=== PATIENT | male | born 1950 | race Caucasian/White ===

== ENCOUNTER 2018-10-28 10:06 | Emergency (ER) | payer OTHER ==
[2018-10-28] MEDS ORDERED: MORPHINE 2 MG/ML SYR ONE ×2 (11:10→14:01)
[2018-10-28] MEDS ORDERED: NA CHLORIDE 0.9% 500 ML ONE (11:10)
[2018-10-28] MEDS ORDERED: ONDANSETRON 4 MG/2 ML VIAL ONE (11:10)
[2018-10-28 11:22] LABS: Absolute Lymphocytes (CBC) 1.8 K/uL (0.7-4.9); Basophils % 0.6 % (0-1.3); Hematocrit 39.2 % (39.6-49.0); Lymphocytes % 24.6 % (15.3-44.8); MPV 7.9 fL (7.6-11.3); RBC Red Blood Cell Count 4.21 M/uL (4.33-5.43)
[2018-10-28] MEDS ORDERED: MORPHINE 4 MG/ML SYR ONE (11:35)
--- NOTE | 2018-10-28 11:36 | RAD REPORT ---
EXAM DESCRIPTION: CT - Stone Protocol - 10/28/2018 11:27 am CLINICAL HISTORY: Left flank pain COMPARISON: None. TECHNIQUE: Axial 5 mm thick images were obtained without oral or IV contrast. The upgcw-cm-exkt span s the entirety of the system including uppermost abdomen and lung bases. All CT scans are performed using dose optimization technique as appropriate and may include automated exposure control or mA/KV adjustment according to patient size. FINDINGS: The patient has a 9 x 6 mm calcification proximal left ureter. From a KUB projection the s tone is positioned between the L3 and L4 transverse processes. Proximal to the stone there is mild to moderate dilatation of the pelvis, calices and proximal ureter. Patient has a punctate 1 mm nonobstr ucting calyx calcification posterior mid left kidney. No right-sided hydronephrosis. No right-sided c alculi. No suspicious renal masses. Isodense masses and pyelonephritis are not excluded on a stone protocol CT scan. No urinary bladder suspicious finding. No significant adrenal finding. Prostate gland is pro minent but without evidence for invasion of attrition structures. There is mild mass effect on the bl adder base. No seminal vesicle abnormality seen. Imaged portions of the liver, spleen and pancreas show no suspicious findings on non-contrast imaging . No gallbladder or biliary tree abnormality identified. No suspicious bowel findings. Moderate stool volume is present. Mild sigmoid diverticulosis with no a ctive finding. No hernia, mass or bulky lymphadenopathy noted. No free air, free fluid or inflammatory stranding. No significant bony abnormality. IMPRESSION: A 9 x 6 mm obstructing calculus proximal left ureter causes mild to moderate hydronephro sis of the proximal ureter, pelvis and calices. When viewed from a KUB projection the stone is positioned between the left-side transverse processes of L3 and L4. Isodense masses and pyelonephritis are not excluded on stone protocol technique.
[2018-10-28 11:39] LABS: Albumin 3.8 g/dL (3.4-5.0); Bilirubin Direct 0.1 mg/dL (0-0.2); Bilirubin Total 0.6 mg/dL (0.2-1.0); Potassium 4.2 mmol/L (3.5-5.1); Protein, Total 6.7 g/dL (6.4-8.2)
--- NOTE | 2018-10-28 12:17 | ER ---
Nurse's Notes [facility] Name: Wayne Montgomery Age: 68 yrs Sex: Male : 1950 Arrival Date: 10/28/2018 Time: 10:09 Bed 16 Private MD: Diagnosis: Calculus of kidney and ureter Presentation: 10/28 10:16 Presenting complaint: Patient states: L flank pain that began at midnight, is ss continuous, dull and radiates around to abdomen. Pt has a history of kidney stones, but reports that this feels a little different. Pt also c/o nausea. Transition of care: patient was not received from another setting of care. Onset of symptoms was October 28, 2018. Risk Assessment: Do you want to hurt yourself or someone else? Patient reports no desire to harm self or others. Initial Sepsis Screen: Does the patient meet any 2 criteria? No. Patient's initial sepsis screen is negative. Does the patient have a suspected source of infection? No. Patient's initial sepsis screen is negative. Care prior to arrival: None. 10:16 Method Of Arrival: Ambulatory ss 10:16 Acuity: ESTRELLA 3 ss Historical: - Allergies: 10:18 No Known Allergies; ss - PMHx: 10:18 Hypertension; Hypothyroidism; Kidney stones; ss 10:19 High Cholesterol; ss - PSHx: 10:18 Appendectomy; ss - Immunization history:: Adult Immunizations up to date. - Social history:: Smoking status: Patient/guardian denies using tobacco. - Ebola Screening: : Patient denies exposure to infectious person Patient denies travel to an Ebola-affected area in the 21 days before illness onset. Screenin:45 Abuse screen: Denies threats or abuse. Nutritional screening: No deficits noted. em Tuberculosis screening: No symptoms or risk factors identified. Fall Risk None identified. Assessment: 10:45 General: Appears in no apparent distress. comfortable, Behavior is calm, cooperative, em Denies fever. Pain: Complains of pain in left low back Pain radiates to abdomen Pain currently is 5 out of 10 on a pain scale. Quality of pain is described as dull. Neuro: Level of Consciousness is awake, alert, obeys commands, Oriented to person, place, time, situation. Cardiovascular: Capillary refill < 3 seconds Patient's skin is warm and dry. Respiratory: Airway is patent Respiratory effort is even, unlabored, Respiratory pattern is regular, symmetrical. GI: Abdomen is flat, Reports nausea, vomiting. : Denies burning with urination. Derm: Skin is intact, is healthy with good turgor, Skin is pink, warm \T\ dry. Musculoskeletal: Capillary refill < 3 seconds, Range of motion: intact in all extremities. 11:00 Reassessment: Patient appears in no apparent distress at this time. I agree with above iw assessment by Kp Dean LVN. 11:10 Reassessment: reports pain medication did not help, provider notified, new medication em orders received. 12:10 Reassessment: Patient appears in no apparent distress at this time. Patient and/or em family updated on plan of care and expected duration. Pain level reassessed. Patient is alert, oriented x 3, equal unlabored respirations, skin warm/dry/pink. rates pain 3/10, went home to pack luggage so they can be discharged and go straight to [place], [place]. 13:30 Reassessment: Patient appears in no apparent distress at this time. Patient and/or em family updated on plan of care and expected duration. Pain level reassessed. Patient is alert, oriented x 3, equal unlabored respirations, skin warm/dry/pink. rates pain 5/10, provider notified, new medication orders received. Vital Signs: 10:18 BP 157 / 85; Pulse 62; Resp 16; Temp 98.0(TE); Pulse Ox 100% on R/A; Weight 70.31 kg; Height 5 ft. 10 in. (177.80 cm); Pain 7/10; 11:05 BP 144 / 80; Pulse 56; Pulse Ox 100% on R/A; Pain 5/10; em 12:23 BP 139 / 80; Pulse 62; Resp 18; Pulse Ox 99% on R/A; em 13:00 BP 123 / 65; Pulse 64; Resp 16; Pulse Ox 99% on R/A; em 10:18 Body Mass Index 22.24 (70.31 kg, 177.80 cm) ED Course: 10:09 Patient arrived in ED. as 10:18 Triage completed. ss 10:18 Arm band placed on right wrist. ss 10:27 Dereje Braga PA is PHCP. jmm 10:27 Ac Swartz MD is Attending Physician. jmm 10:30 Kp Dean LVN is Primary Nurse. em 10:45 Patient has correct armband on for positive identification. Bed in low position. Call em light in reach. Adult w/ patient. Pulse ox on. NIBP on. 10:45 Initial lab(s) drawn, by me, sent to lab. Inserted saline lock: 20 gauge in left em antecubital area, using aseptic technique. Blood collected. 11:29 CT Stone Protocol In Process Unspecified. EDMS 13:55 No provider procedures requiring assistance completed. IV discontinued, intact, em bleeding controlled, No redness/swelling at site. Pressure dressing applied. Administered Medications: 11:04 Drug: morphine 2 mg Route: IVP; Site: left antecubital; iw 11:15 Follow up: Response: No adverse reaction; Pain is unchanged, physician notified em 11:04 Drug: Zofran 4 mg Route: IVP; Site: left antecubital; iw 11:15 Follow up: Response: No adverse reaction; Nausea is decreased em 11:04 Drug: NS 0.9% 500 ml Route: IV; Rate: bolus; Site: left antecubital; iw 11:24 Follow up: IV Status: Completed infusion; IV Intake: 500ml em 11:23 Drug: morphine 4 mg Route: IVP; Site: left antecubital; em 12:02 Follow up: Response: No adverse reaction; Pain is decreased em 12:21 Drug: Rocephin 1 grams Route: IV; Rate: calculated rate; Site: left antecubital; iw 13:31 Follow up: Response: No adverse reaction; IV Status: Completed infusion; IV Intake: 10mlem 13:50 Drug: morphine 2 mg Route: IVP; Site: left antecubital; em 13:54 Follow up: Response: Medication administered at discharge. em Intake: 11:24 IV: 500ml; Total: 500ml. em 13:31 IV: 10ml; Total: 510ml. em Outcome: 12:16 Discharge ordered by . jmm 13:55 Discharged to home ambulatory, with family. em 13:55 Condition: good 13:55 Discharge instructions given to patient, family, Instructed on discharge instructions, follow up and referral plans. medication usage, Demonstrated understanding of instructions, follow-up care, medications, Prescriptions given X 4. 13:56 Patient left the ED. em Signatures: Dispatcher [employer] EDDereje Kimble PA PA jmm Munoz, Edgar, RUBBER ATTACHER RUBBER ATTACHER Tracie Callaway Irene, RN RN Loren Faulkner RN RN ss
--- NOTE | 2018-10-28 12:17 | EDPHYS ---
Physician Documentation [facility] Name: Wayne Montgomery Age: 68 yrs Sex: Male : 1950 Arrival Date: 10/28/2018 Time: 10:09 Bed 16 Private MD: ED Physician Ac Swartz HPI: 10/28 10:30 This 68 yrs old Male presents to ER via Ambulatory with complaints of Flank jmm Pain. 10:30 The patient complains of pain in the right flank. The pain radiates to the abdomen. jmm Onset: The symptoms/episode began/occurred gradually. Modifying factors: The symptoms are alleviated by nothing. the symptoms are aggravated by nothing. Associated signs and symptoms: Pertinent positives: dysuria. This is a 68 year old male with a history of htn, hlp that presents to the ED with complaints of left sided flank pain beginning last night. Patient states having a history of kidney stones in the past. Denies vomiting, denies fever, denies chills. . Historical: - Allergies: 10:18 No Known Allergies; ss - PMHx: 10:18 Hypertension; Hypothyroidism; Kidney stones; ss 10:19 High Cholesterol; ss - PSHx: 10:18 Appendectomy; ss - Immunization history:: Adult Immunizations up to date. - Social history:: Smoking status: Patient/guardian denies using tobacco. - Ebola Screening: : Patient denies exposure to infectious person Patient denies travel to an Ebola-affected area in the 21 days before illness onset. ROS: 10:30 Constitutional: Negative for fever, chills, and weight loss, Cardiovascular: Negative jmm for chest pain, palpitations, and edema, Respiratory: Negative for shortness of breath, cough, wheezing, and pleuritic chest pain. 10:30 Abdomen/GI: Positive for abdominal pain, nausea. 10:30 Back: Positive for flank pain, on the left. 10:30 All other systems are negative. Exam: 10:30 Constitutional: This is a well developed, well nourished patient who is awake, alert, jmm and in no acute distress. Head/Face: atraumatic. Eyes: EOMI, no conjunctival erythema appreciated ENT: Moist Mucus Membranes Neck: Trachea midline, Supple Chest/axilla: Normal chest wall appearance and motion. Cardiovascular: Regular rate and rhythm. No edema appreciated Respiratory: Normal respirations, no respiratory distress appreciated 10:30 Skin: General appearance color normal MS/ Extremity: Moves all extremities, no obvious deformities appreciated, no edema noted to the lower extremities Neuro: Awake and alert, normal gait Psych: Behavior is normal, Mood is normal, Patient is cooperative and pleasant 10:30 Abdomen/GI: Inspection: abdomen appears normal, Bowel sounds: normal, Palpation: soft, mild abdominal tenderness, in the left lower quadrant. 10:30 Back: CVA tenderness, that is mild, is noted on the left. Vital Signs: 10:18 BP 157 / 85; Pulse 62; Resp 16; Temp 98.0(TE); Pulse Ox 100% on R/A; Weight 70.31 kg; ss Height 5 ft. 10 in. (177.80 cm); Pain 7/10; 11:05 BP 144 / 80; Pulse 56; Pulse Ox 100% on R/A; Pain 5/10; em 12:23 BP 139 / 80; Pulse 62; Resp 18; Pulse Ox 99% on R/A; em 13:00 BP 123 / 65; Pulse 64; Resp 16; Pulse Ox 99% on R/A; em 10:18 Body Mass Index 22.24 (70.31 kg, 177.80 cm) ss MDM: 10:30 Patient medically screened. anette 12:15 Data reviewed: vital signs, nurses notes. Counseling: I had a detailed discussion with [facility] the patient and/or guardian regarding: the historical points, exam findings, and any diagnostic results supporting the discharge/admit diagnosis, lab results, radiology results, the need for outpatient follow up, to return to the emergency department if symptoms worsen or persist or if there are any questions or concerns that arise at home. 13:57 ED course: I discussed the need for transfer due to no urology services at this [facility]. family declined in favor returning to their home city. I discussed risks of declining transfer along with return precautions. Family understood. . 10/28 10:45 Order name: Basic Metabolic Panel; Complete Time: 11:40 [facility] 10/28 10:45 Order name: CBC with Diff; Complete Time: 11:38 [facility] 10/28 10:45 Order name: Creatinine for Radiology; Complete Time: 11:38 [facility] 10/28 10:45 Order name: Hepatic Function; Complete Time: 11:40 [facility] 10/28 10:45 Order name: Lipase; Complete Time: 11:40 [facility] 10/28 10:51 Order name: Urine Dipstick--Ancillary (enter results); Complete Time: 12:30 10/28 11:16 Order name: CT Stone Protocol; Complete Time: 11:38 [facility] 10/28 10:45 Order name: IV Saline Lock; Complete Time: 11:33 [facility] 10/28 10:45 Order name: Labs collected and sent; Complete Time: 11:33 [facility] 10/28 10:45 Order name: Urine Dipstick-Ancillary (obtain specimen); Complete Time: 11:33 [facility] Administered Medications: 11:04 Drug: morphine 2 mg Route: IVP; Site: left antecubital; iw 11:15 Follow up: Response: No adverse reaction; Pain is unchanged, physician notified em 11:04 Drug: Zofran 4 mg Route: IVP; Site: left antecubital; iw 11:15 Follow up: Response: No adverse reaction; Nausea is decreased em 11:04 Drug: NS 0.9% 500 ml Route: IV; Rate: bolus; Site: left antecubital; iw 11:24 Follow up: IV Status: Completed infusion; IV Intake: 500ml em 11:23 Drug: morphine 4 mg Route: IVP; Site: left antecubital; em 12:02 Follow up: Response: No adverse reaction; Pain is decreased em 12:21 Drug: Rocephin 1 grams Route: IV; Rate: calculated rate; Site: left antecubital; iw 13:31 Follow up: Response: No adverse reaction; IV Status: Completed infusion; IV Intake: 10mlem 13:50 Drug: morphine 2 mg Route: IVP; Site: left antecubital; em 13:54 Follow up: Response: Medication administered at discharge. em Disposition: 15:13 Co-signature as Attending Physician, Ac Swartz MD I agree with the assessment and anette plan of care. Disposition: 10/28/18 12:16 Discharged to Home. Impression: Calculus of kidney and ureter. - Condition is Stable. - Discharge Instructions: Kidney Stones. - Prescriptions for Tylenol- Codeine #3 300-30 mg Oral Tablet - take 1 tablet by ORAL route every 6 hours As needed; 20 tablet. Flomax 0.4 mg Oral Capsule, Sust. Release 24 hr - take 1 capsule by ORAL route once daily 1/2 hour following the same meal each day; 30 capsule. Zofran ODT 4 mg Oral tablet,disintegrating - place 1 tablet by TRANSLINGUAL route every 4-6 hours; 20 tablet. Cephalexin 500 mg Oral Capsule - take 1 capsule by ORAL route every 12 hours for 10 days; 20 capsule. - Medication Reconciliation Form, Thank You Letter, Antibiotic Education, Prescription Opioid Use form. - Follow up: Private Physician; When: 1 - 2 days; Reason: Recheck today's complaints, Continuance of care, Re-evaluation by your physician. Signatures: Dispatcher [employer] EDMI Ac Swartz MD MD cha Mickail, Joel, PA PA rosina Kp Dean, TUNNEL HEADING INSPECTOR TUNNEL HEADING INSPECTOR em Celeste Jimenez RN RN iw Loren Barrera RN RN ss Corrections: (The following items were deleted from the chart) 11:22 10:46 Abdomen Pelvis W [email or web address].[email or web address] ordered. [facility] 13:56 12:16 10/28/2018 12:16 Discharged to Home. Impression: Calculus of kidney and ureter. em Condition is Stable. Forms are Medication Reconciliation Form, Thank You Letter, Antibiotic Education, Prescription Opioid Use. Follow up: Private Physician; When: 1 - 2 days; Reason: Recheck today's complaints, Continuance of care, Re-evaluation by your physician. poncho
[2018-10-28] MEDS ORDERED: CEFTRIAXONE/SWI 1gm 1 GM/10 ML SYR ONE (12:21)
[2018-10-28 12:26] LABS: Urine Blood 3+ (NEG); Urine Glucose NEGATIVE (NEG); Urine Protein 1+ (NEG); Urine pH 5.5 (5.0-7.0)
== END 2018-10-28 13:56 | disposition home or self-care (01) ==
LOC: ER 10:06
DX: N20.2 Calculus of kidney with calculus of ureter (principal); I10 Essential (primary) hypertension; E03.9 Hypothyroidism, unspecified; E78.00 Pure hypercholesterolemia, unspecified
CPT/HCPCS: 96365; 85025; 80048; 36415; 80076; 81003; 83690; 76377; 74176; 96375; 99284; J2270 ×2; J0696; J2405